=== PATIENT | male | born 1985 | race Caucasian/White ===

== ENCOUNTER 2020-08-20 14:03 | Emergency (ER) | payer OTHER ==
[~2020-08-20] VITALS: Ht 175.3 cm; Wt 72.7 kg
[2020-08-20 14:15] VITALS: BP 148/100
--- NOTE | 2020-08-20 14:21 | RAD ---
PQRS Compliance Statement: One or more of the following individualized dose reduction techniques were utilized for this examination: 1. Automated exposure control 2. Adjustment of the mA and/or kV according to patient size 3. Use of iterative reconstruction technique CT head without contrast 08/20/2020 2:08 PM INDICATION: Right facial droop COMPARISON: None available TECHNIQUE: Multiple axial CT images of the head were obtained from skull base through the vertex without intravenous contrast. FINDINGS: Head: Ventricles, sulci and basal cisterns are within normal limits. There is no hydrocephalus. Rogers-white matter differentiation is normal. There is no acute intracranial hemorrhage. There is no mass, mass effect or midline shift. Posterior fossa is normal in appearance. Visualized portions of the orbits are normal. Paranasal sinuses are well aerated. Mastoid air cells are well aerated. Scalp and calvaria are normal. IMPRESSION: No acute intracranial hemorrhage. FOR INTERNAL CODING PURPOSES Critical result: Findings discussed with MANPREET SHULTZ at 08/20/2020 2:14 PM. RESULT CODE: (C) Electronically signed by: Estrellita Iqbal MD (08/20/2020 2:18 PM) [id number]
--- NOTE | 2020-08-20 14:26 | PHYS DOC ---
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 Patient reports no recent febrile illness or other concerning abnormalities and does not take any medication on a daily basis. Patient reports waking up and in the middle of performing daily morning routine such as shaving, noticed he had motor and sensory abnormalities along his right eye. This occurred at approximately 8 AM. Patient went to work, was having worsened ability to open and close his right eye with decreased sensation which concerned him. EMS was ultimately called to transport to our facility for concern of possible stroke. He has no significant past medical history. No significant family history of CVA. He has no other symptoms such as headache, COVID-19 contact, chest pain, shortness of breath, abdominal pain, changes in bladder or bowel function, falls, other neurologic deficits to report Review of Systems Review of Systems Fourteen body systems of review of systems have been reviewed. See HPI for pertinent positives and negative responses, other brennan all other systems are negative, non-pertinent or non-contributory Allergies Allergies Allergies Coded Allergies Type Severity Reaction Last Updated Verified No Known Drug Allergies 08/20/20 No Physical Exam Physical Exam Constitutional: Well developed, well nourished, no acute distress, non-toxic appearance. [] HENT: Normocephalic, atraumatic, bilateral external ears normal, oropharynx moist, no oral exudates, nose normal. [] Eyes: PERRLA, EOMI, conjunctiva normal, no discharge. [] Neck: Normal range of motion, no tenderness, supple, no stridor. [] Cardiovascular:Heart rate regular rhythm, no murmur [] Lungs & Thorax: Bilateral breath sounds clear to auscultation [] Abdomen: Bowel sounds normal, soft, no tenderness, no masses, no pulsatile masses. [] Skin: Warm, dry, no erythema, no rash. [] Back: No tenderness, no CVA tenderness. [] Extremities: No tenderness, no cyanosis, no clubbing, ROM intact, no edema. [] Neurologic: Alert and oriented X 3, normal motor function, normal sensory function, no focal deficits noted. [] Psychologic: Affect normal, judgement normal, mood normal. [] Current Patient Data Vital Signs Vital Signs Date Time Temp Pulse Resp B/P (MAP) Pulse Ox O2 Delivery O2 Flow Rate FiO2 08/20/20 14:15 97.7 107 18 148/100 (116) 95 Lab Results Laboratory Tests Test 08/20/20 14:11 White Blood Count 5.6 x10^3/uL (4.0-11.0) Red Blood Count 5.44 x10^6/uL (4.30-5.70) Hemoglobin 15.1 g/dL (13.0-17.5) Hematocrit 45.5 % (39.0-53.0) Mean Corpuscular Volume 84 fL (79-100) Mean Corpuscular Hemoglobin 28 pg (25-35) Mean Corpuscular Hemoglobin Concent 33 g/dL (31-37) Red Cell Distribution Width 14.1 % (11.5-14.5) Platelet Count 222 x10^3/uL (140-400) Neutrophils (%) (Auto) 56 % (31-73) Lymphocytes (%) (Auto) 35 % (24-48) Monocytes (%) (Auto) 8 % (0-9) Eosinophils (%) (Auto) 1 % (0-3) Basophils (%) (Auto) 0 % (0-3) Neutrophils # (Auto) 3.2 x10^3uL (1.8-7.7) Lymphocytes # (Auto) 2.0 x10^3/uL (1.0-4.8) Monocytes # (Auto) 0.4 x10^3/uL (0.0-1.1) Eosinophils # (Auto) 0.0 x10^3/uL (0.0-0.7) Basophils # (Auto) 0.0 x10^3/uL (0.0-0.2) Prothrombin Time 9.9 SEC (9.4-11.4) Prothromb Time International Ratio 1.0 (0.9-1.1) Activated Partial Thromboplast Time 24 SEC (23-33) Sodium Level 139 mmol/L (136-145) Potassium Level 3.5 mmol/L (3.5-5.1) Chloride Level 102 mmol/L (98-107) Carbon Dioxide Level 28 mmol/L (21-32) Anion Gap 9 (6-14) Blood Urea Nitrogen 16 mg/dL (8-26) Creatinine 1.2 mg/dL (0.7-1.3) Estimated GFR (Cockcroft-Gault) 68.5 BUN/Creatinine Ratio 13 (6-20) Glucose Level 111 mg/dL (70-99) Calcium Level 9.1 mg/dL (8.5-10.1) Total Bilirubin 0.4 mg/dL (0.2-1.0) Aspartate Amino Transf (AST/SGOT) 76 U/L (15-37) Alanine Aminotransferase (ALT/SGPT) 38 U/L (16-63) Alkaline Phosphatase 117 U/L (46-116) Troponin I Quantitative < 0.017 ng/mL (0-0.055) XS-Bzz-E-Type Natriuretic Peptide 11 pg/mL (0-124) Total Protein 8.0 g/dL (6.4-8.2) Albumin 4.2 g/dL (3.4-5.0) Albumin/Globulin Ratio 1.1 (1.0-1.7) EKG EKG EKG ordered and interpreted by myself at 1422 hrs. as sinus rhythm at 96 bpm, unremarkable intervals, no axis deviation, T wave inversions noted to anterior lateral leads in V3, V4 with potential T wave abnormalities noted in lead III. No STEMI Radiology/Procedures Radiology/Procedures PROCEDURE: CHEST AP ONLY EXAM: CHEST AP ONLY INDICATION: Reason: RIGHT FACIAL DROOP / Spl. Instructions: / History: . TECHNIQUE: Single view COMPARISON: None FINDINGS: The heart size is normal. The great vessels appear unremarkable. There is no hilar or mediastinal mass. The lungs are clear. There is no pleural effusion or pneumothorax. There are no significant osseous abnormalities. IMPRESSION: No active cardiopulmonary disease. Electronically signed by: Saima Kaur MD (08/20/2020 3:00 PM) [id number] PROCEDURE: CT CODE STROKE HEAD WO PQRS Compliance Statement: One or more of the following individualized dose reduction techniques were utilized for this examination: 1. Automated exposure control 2. Adjustment of the mA and/or kV according to patient size 3. Use of iterative reconstruction technique CT head without contrast 08/20/2020 2:08 PM INDICATION: Right facial droop COMPARISON: None available TECHNIQUE: Multiple axial CT images of the head were obtained from skull base through the vertex without intravenous contrast. FINDINGS: Head: Ventricles, sulci and basal cisterns are within normal limits. There is no hydrocephalus. Rogers-white matter differentiation is normal. There is no acute intracranial hemorrhage. There is no mass, mass effect or midline shift. Posterior fossa is normal in appearance. Visualized portions of the orbits are normal. Paranasal sinuses are well aerated. Mastoid air cells are well aerated. Scalp and calvaria are normal. IMPRESSION: No acute intracranial hemorrhage. Heart Score HEART Score for Chest Pain: HEART Score for Chest Pain Response (Comments) Value History Slighlty/Non-Suspicious 0 ECG Nonspecific Repolarizatio 1 Age < 45 0 Risk Factors No Risk Factors 0 Troponin < Normal Limit 0 Total 1 Risk Factors: Risk Factors: DM, Current or recent (<one month) smoker, HTN, HLP, family history of CAD, obesity. Risk Scores: Risk Factors: DM, Current or recent (<one month) smoker, HTN, HLP, family history of CAD, obesity. Course & Med Decision Making Course & Med Decision Making Pertinent Labs and Imaging studies reviewed. (See chart for details) Code stroke called, negative head CT, NIH scale score of 1 for sensory abnormalities that were mild to right face Peculiar case in an otherwise healthy male. Out of window for any aggressive intervention such as TPA but I doubt this is stroke given strict facial V2 nerve distribution of motor and sensory dysfunction Case was discussed with on-call neurologist, Dr. Stiles. Given that patient is hemodynamically stable, ambulatory, and nontoxic-appearing, joint decision was made to have patient be transported by his immediately to Dr. Stiles's office for evaluation I discussed plan of care with patient and he was amenable. He remains asymptomatic other than right eye motor and sensory abnormalities that remained steady throughout visit I discussed potential that patient might be referred back to our facility for continued intervention and possible admission and he was amenable to this plan of care. Strict return precautions were discussed with all questions and concerns addressed prior to ER departure to Dr. Stiles's office Dragon Disclaimer Dragon Disclaimer This electronic medical record was generated, in whole or in part, using a voice recognition dictation system. Departure Departure: Impression: Primary Impression: Facial paralysis on right side Disposition: 01 DC HOME SELF CARE/HOMELESS Condition: STABLE Referrals: PCP,NO (PCP) JOSHUA STILES MD [address] [place] [id number] Additional Instructions: As discussed prior to ER departure, please present to Dr. Joshua Stiles's office, the neurologist I spoke with prior to your ER departure to be seen immediately in his outpatient clinic You have been given documents such as your EKG, CT head findings, and laboratory analysis which will help better assist him in your case At the discretion of the neurologist, please do not hesitate to come back if further work-up and/or evaluation is required in the ER setting It was a pleasure to take care of you and I wish you a speedy recovery MANPREET SHULTZ DO Aug 20, 2020 14:25
[2020-08-20 14:32] LABS: BASO % 0 % (0-3); EOS % 1 % (0-3); HEMATOCRIT 45.5 % (39.0-53.0); HEMOGLOBIN 15.1 g/dL (13.0-17.5); LYMPH % 35 % (24-48); MEAN CORPUSCULAR HEMOGLOBIN 28 pg (25-35); MEAN CORPUSCULAR HGB CONC 33 g/dL (31-37); MEAN CORPUSCULAR VOLUME 84 fL (79-100); MONO # 0.4 x10^3/uL (0.0-1.1); MONO % 8 % (0-9); NEUT # 3.2 x10^3uL (1.8-7.7); NEUT % 56 % (31-73); PLATELET COUNT 222 x10^3/uL (140-400); RED BLOOD COUNT 5.44 x10^6/uL (4.30-5.70); RED CELL DISTRIBUTION WIDTH 14.1 % (11.5-14.5); WHITE BLOOD COUNT 5.6 x10^3/uL (4.0-11.0)
[2020-08-20 14:36] LABS: CALCIUM 9.1 mg/dL (8.5-10.1); CREATININE 1.2 mg/dL (0.7-1.3); GFR 68.5; POTASSIUM 3.5 mmol/L (3.5-5.1)
[2020-08-20 14:42] LABS: ALBUMIN 4.2 g/dL (3.4-5.0); ALBUMIN/GLOBULIN RATIO 1.1 (1.0-1.7); TOTAL BILIRUBIN 0.4 mg/dL (0.2-1.0)
--- NOTE | 2020-08-20 15:03 | RAD ---
EXAM: CHEST AP ONLY INDICATION: Reason: RIGHT FACIAL DROOP / Spl. Instructions: / History: . TECHNIQUE: Single view COMPARISON: None FINDINGS: The heart size is normal. The great vessels appear unremarkable. There is no hilar or mediastinal mass. The lungs are clear. There is no pleural effusion or pneumothorax. There are no significant osseous abnormalities. IMPRESSION: No active cardiopulmonary disease. Electronically signed by: Saima Kaur MD (08/20/2020 3:00 PM) [id number]
--- NOTE | 2020-08-21 06:39 | EKG ---
[address] [address] Test Date: 2020-08-20 Test Time: 14:18:07 Pat Name: MATT INGRAM Department: Room: Gender: M Public Relations Coordinator: [facility] : 1985 Requested By: MANPREET SHULTZ Order Number: [id number] Reading MD: Measurements Intervals [place] Rate: 96 P: 45 DC: 154 QRS: 63 QRSD: 98 T: 30 QT: 336 QTc: 431 Interpretive Statements SINUS RHYTHM CONSIDER RIGHT VENTRICULAR HYPERTROPHY ST & T ABNORMALITY, CONSIDER ANTERIOR ISCHEMIA OR LEFT VENTRICULAR STRAIN ABNORMAL ECG RI6.02 No previous ECG available for comparison
== END 2020-08-20 15:22 | disposition home or self-care (01) ==
LOC: ER 14:03
DX: G51.0 Bell's palsy (principal)
CPT/HCPCS: 36415; 70450; 71045; 80053; 82947; 83880; 84484; 85025; 85610; 85730; 93005; 99285